=== PATIENT | female | born 1935 | race Two or more races ===

== ENCOUNTER 2021-09-14 05:50 | Day surgery (SDC) | payer OTHER ==
[~2021-09-14 05:50] MED LIST: ADULT LOW DOSE81 M1 PO; BACLOFEN10 MG PO; CARDURA PO; COZAAR100 MG PO; GABAPENT PO; LASIX20 MG PO; LIPIT PO; MATZIM LA240 MG PO; MELOXICAM15 MG PO; [UNRECOGNIZED DRUG - OTHER] PO
== END 2021-09-14 10:35 | disposition home or self-care (01) ==
LOC: CIR.AMB 05:50
PROVIDERS: ATTEND Anesthesiology Pain Medicine
DX: M99.73 Connective tissue and disc stenosis of intervertebral foramina of lumbar region (principal); M48.07 Spinal stenosis, lumbosacral region; I10 Essential (primary) hypertension; Z86.718 Personal history of other venous thrombosis and embolism; I87.2 Venous insufficiency (chronic) (peripheral); M81.0 Age-related osteoporosis without current pathological fracture; Z79.82 Long term (current) use of aspirin